=== PATIENT | female | born 1985 | race Caucasian/White ===

== ENCOUNTER 2023-12-15 12:28 | Outpatient (CLI) | payer BC ==
[2023-12-15 12:47] LABS: HCT - HEMATOCRIT 42.6 % (37.0-47.0); HGB - HEMOGLOBIN 13.5 g/dL (12.0-16.0); MEAN CORPUSCULAR HEMOGLOBIN 28.5 pg (27.0-31.0); MEAN CORPUSCULAR HGB CONC 31.7 g/dL (32.0-36.0); MEAN CORPUSCULAR VOLUME 90.1 fL (81.0-99.0); MEAN PLATELET VOLUME 10.2 fL (7.9-10.8); RED BLOOD COUNT 4.73 10^6/uL (4.20-5.40); RED CELL DISTRIBUTION WIDTH 12.7 % (12.0-15.0); WHITE BLOOD COUNT 6.6 x10^3/uL (4.8-10.8)
[2023-12-15 13:02] LABS: CHOL/HDL RATIO 2.7 (<4.4); CHOLESTEROL 177 mg/dL; HDL CHOLESTEROL 66 mg/dL; LDL CHOLESTEROL,CALCULATED 97 mg/dL; LDL/HDL RATIO 1.5 (<4.4); TRIGLYCERIDES 69 mg/dL (48-352); VLDL CHOLESTEROL 14 mg/dL
[2023-12-15 13:16] LABS: THYROID STIMULATING HORMONE 2.07 uIU/mL (0.34-5.60)
[2023-12-15 20:13] LABS: ESTIMATED AVERAGE GLUCOSE 97 mg/dL (70-100)
[2023-12-16 02:10] LABS: HCV AB Non Reactive (Non Reactive)
== END 2023-12-15 12:29 | disposition home or self-care (01) ==
LOC: LAB 12:28
PROVIDERS: ATTEND Obstetrics & Gynecology
DX: Z12.4 Encounter for screening for malignant neoplasm of cervix (principal)
CPT/HCPCS: 36415; 80061; 83036; 83721; 84443; 85027; 86803

== ENCOUNTER 2024-03-29 18:28 | Outpatient (CLI) | payer BC ==
--- NOTE | 2024-03-31 18:55 | Ultrasound Report ---
PROCEDURE: Soft Tissue Head or Neck INDICATIONS: NECK PAIN TECHNIQUE: Targeted ultrasound in the left posterior neck at site of pain. COMPARISON: None FINDINGS: Targeted ultrasound in the left posterior neck at site of pain demonstrates no fluid collection, mass or sonographic abnormality. No increased vascularity. IMPRESSION: No sonographic abnormality in the left posterior neck at site of pain. Specifically, no mass or fluid collection. Reviewed by: Simone Canchola MD on 03/31/2024 6:53 PM PDT Approved by: Simone Canchola MD on 03/31/2024 6:53 PM PDT Station ID: [id number]
--- NOTE | 2024-03-31 18:57 | Ultrasound Report ---
PROCEDURE: Carotid Doppler Complete INDICATIONS: NECK PAIN TECHNIQUE: Color and pulse Doppler interrogation was performed of both carotid systems, with image documentation and velocity measurements. COMPARISON: None. FINDINGS: Right side: Brachial blood pressure: 108 mm Hg. Common carotid artery peak systolic velocity: 128 cm/sec. Internal carotid artery peak systolic velocity: 126 cm/sec. Internal carotid artery end diastolic velocity: 42 cm/sec. External carotid artery peak systolic velocity: 142 cm/sec. ICA/CCA peak systolic ratio: 0.9 . Nguyen scale imaging description: No significant atherosclerotic plaque. Percent internal carotid artery stenosis: No hemodynamically significant stenosis. Vertebral artery: Flow direction is antegrade. Left side: Brachial blood pressure: 119 mm Hg. Common carotid artery peak systolic velocity: 108 cm/sec. Internal carotid artery peak systolic velocity: 116 cm/sec. Internal carotid artery end diastolic velocity: 44 cm/sec. External carotid artery peak systolic velocity: 1:30 cm/sec. ICA/CCA peak systolic ratio: 1 . Nguyen scale imaging description: No significant atherosclerotic plaque. Percent internal carotid artery stenosis: No hemodynamically significant stenosis. Vertebral artery: Flow direction is antegrade. IMPRESSION: 1. In the right internal carotid artery, there is no hemodynamically significant stenosis based on pe ak systolic velocity criteria. 2. In the left internal carotid artery, there is no hemodynamically significant stenosis based on pea k systolic velocity criteria. 3. Antegrade blood flow within the right vertebral artery. 4. Antegrade blood flow within the left vertebral artery. The estimate of stenosis included in the report of the imaging study was calculated using the [facility]-end orsed standards of carotid artery stenosis. Reviewed by: Simone Canchola MD on 03/31/2024 6:55 PM PDT Approved by: Simone Canchola MD on 03/31/2024 6:55 PM PDT Station ID: [id number]
== END 2024-03-29 18:29 | disposition home or self-care (01) ==
LOC: DI 18:28
PROVIDERS: ATTEND Nurse Practitioner
DX: M54.2 Cervicalgia (principal)
CPT/HCPCS: 93880